=== PATIENT | male | born 1970 | race Hispanic/Latino ===

== ENCOUNTER 2020-08-20 11:21 | Observation (INO) | payer SELFPAY ==
[~2020-08-20] VITALS: Ht 170.2 cm; Wt 94.1 kg
--- NOTE | 2020-08-20 11:47 | NUR ---
PATIENT TO ROOM VIA WHEELCHAIR AND PHYSICIAN NOTIFIED OF PATIENT STATUS
[2020-08-20 11:59] LABS: GFR > 60 ML/MIN (>=60 (CALC)); GFR FOR AFR.AMER. > 60 ML/MIN (>=60 (CALC))
[2020-08-20 12:05] LABS: HEMATOCRIT 42.5 % (39.0-50.0); HEMOGLOBIN 14.7 g/dl (14.0-18.0); IMMATURE GRANULOCYTES 0.6 % (0.0-5.0); MEAN CELL VOLUME 93.4 fL CALC (80.0-100.0); MEAN CORPUSCULAR HGB 32.3 pG CALC (26.0-32.0); MEAN CORPUSCULAR HGB CONC 34.6 g/dL CAL (32.0-36.0); NEUT# 6.18 thou/uL (1.82-7.42); RED BLOOD COUNT 4.55 mill/uL (4.70-6.10); RED CELL DISTRI WIDTH 12.2 % (11.5-15.5)
[2020-08-20 12:16] LABS: ALBUMIN 4.2 g/dL (3.2-5.0); ALKALINE PHOSPHATASE 101 u/l (38-126); ANION GAP 10 (6-22 (CALC)); BILIRUBIN, TOTAL 0.5 mg/dL (0.0-1.4); BUN 13 mg/dL (9-20); BUN/CREATININE RATIO 13 (12-20 (CALC)); CARBON DIOXIDE 27 mmol/l (22-30); CHLORIDE 106 mmol/l (95-108); CREATININE 1.1 mg/dL (0.7-1.3); GFR > 60 ML/MIN (>=60 (CALC)); GFR FOR AFR.AMER. > 60 ML/MIN (>=60 (CALC)); POTASSIUM 3.9 mmol/l (3.5-5.1); SGOT/AST 31 u/l (17-59); SODIUM 138 mmol/l (137-146); TOTAL PROTEIN 7.6 g/dL (6.3-8.2)
--- NOTE | 2020-08-20 12:34 | NUR ---
PT ARRIVED BACK AFTER DOING CT SCANS PT NOT IN VISIBLE DISTRESS
--- NOTE | 2020-08-20 14:42 | NUR ---
PT GOING DOWN TO MRI OTHERWISE PT IS WITHOUT DISTRESS
--- NOTE | 2020-08-20 16:13 | NUR ---
PT HAS TAKES MEDICATION AT HOME BUT UNABLE TO RECALL MEDS HE TAKES
--- NOTE | 2020-08-20 16:18 | NUR ---
REPORT CALLED AND GIVEN TO CECIL RDORIGUEZ PT HAS NO ACUTE DISTRESS HE WAS SLEEPING PRIOR TO AWAKENING HIM TO LET HIM KNOW HE WAS GOING TO BE TRANSFERRED. TRANSFER TO [facility] NOW
--- NOTE | 2020-08-20 16:18 | NUR ---
PT COMPLAINED OF CHEST DISCOMFORT EKG DONE NO NEW ORDERS
--- NOTE | 2020-08-20 16:25 | NUR ---
PATIENT ARRIVED VIA WHEELCHAIR FROM ER. REPORT HANDED OFF BY TAJ. PATIENT ORIENTED TO ROOM AND BED AND CALL LIGHT AND TV REMOTE AT THIS TIME. PATIENT DENIES ANY PAIN AND STATES HIS PAIN IS 0 OUT OF A SCALE OF 0-10. IV IN LAC #20 AND HAS NO SIGNS/SYMPTOMS OF IV SITE INFECTION. PATIENT HAS $603.00 DOLLARS IN HIS WALLET THAT HE WILL RETAIN WITH HIM. PATIENT SHOWING NO SIGNS OF WEAKNESS IN ANY EXTREMITIES. ALL SAFETY MEASURES IN PLACE CALL LIGHT NEAR. SIDERAILS UP X 2.
[2020-08-20 16:40] VITALS: BP 140/77
[2020-08-20 19:20] VITALS: BP 153/87
--- NOTE | 2020-08-20 19:30 | NUR ---
PATIENT RESTING IN BED AT THIS TIME-AWAKE ALERT AND ORIENTEDX3-MOSTLY BRUNEIAN SPEAKING. TELE MONITOR IN PLACE. SALINE LOCK TO LAC INTACT AND HEALTHY AT THIS TIME. PATIENT STATES THAT HE HAD SOME NUMBNESS AND TINGLING TO LEFT ARM AFTER EATING DINNER-ALSO C/O OF SOME ABD PAIN. HAND GRASP ARE STRONG AND EQUAL. ZIYAD IS WNL. SAFETY PRECAUTIONS REINFORCED. CALL LIGHT IN REACH. WILL CONT TO MONITOR.
--- NOTE | 2020-08-20 20:30 | NUR ---
PATIENT RESTING IN BED TALKING ON HIS PHONE-MEDICATED FOR ABD PAIN WITH TYTLENOL 650MG PO. WILL CONT TO MONITOR.
--- NOTE | 2020-08-20 23:00 | NUR ---
PATIENT RESTING IN BED WITH EYES CLOSED-RESP ARE EVEN AND UNLABORED. PATIENT APPEARS SLEEPING. TELE MONITOR IN PLACE. CALL LIGHT IN REACH. WILL CONT TO MONITOR.
[2020-08-20 23:25] VITALS: BP 122/65
[2020-08-21 03:45] VITALS: BP 126/72
--- NOTE | 2020-08-21 04:05 | NUR ---
PATIENT RESTING IN BED AND APPEARS SLEEPING WITH EYES CLOSED. RESPS ARE EVEN AND UNLABORED. TELE MONITOR IN PLACE. SALINE LOCK TO LAC INTACT. CALL LIGHT IN REACH. WILL CONT TO MONITOR.
[2020-08-21 06:26] LABS: HEMATOCRIT 45.5 % (39.0-50.0); HEMOGLOBIN 15.7 g/dl (14.0-18.0); IMMATURE GRANULOCYTES 0.6 % (0.0-5.0); MEAN CELL VOLUME 92.9 fL CALC (80.0-100.0); MEAN CORPUSCULAR HGB CONC 34.5 g/dL CAL (32.0-36.0); NEUT# 5.01 thou/uL (1.82-7.42); RED BLOOD COUNT 4.9 mill/uL (4.70-6.10); RED CELL DISTRI WIDTH 12.2 % (11.5-15.5)
[2020-08-21 06:39] LABS: ALKALINE PHOSPHATASE 74 u/l (38-126); BILIRUBIN, TOTAL 0.5 mg/dL (0.0-1.4); BUN 12 mg/dL (9-20); BUN/CREATININE RATIO 17 (12-20 (CALC)); CARBON DIOXIDE 26 mmol/l (22-30); CHLORIDE 107 mmol/l (95-108); CREATININE 0.7 mg/dL (0.7-1.3); GFR > 60 ML/MIN (>=60 (CALC)); GFR FOR AFR.AMER. > 60 ML/MIN (>=60 (CALC)); SGOT/AST 31 u/l (17-59); SODIUM 140 mmol/l (137-146); TOTAL PROTEIN 7.1 g/dL (6.3-8.2)
[2020-08-21 06:40] LABS: CHOLESTEROL HDL RATIO 3.7 (<4.4 (CALC))
[2020-08-21 06:41] LABS: ANION GAP 11 (6-22 (CALC)); POTASSIUM 4.3 mmol/l (3.5-5.1)
[2020-08-21 07:46] VITALS: BP 120/74
--- NOTE | 2020-08-21 07:46 | NUR ---
PATIENT IN BED AWAKE A/O X3. DENIES ANY PAIN AT THIS TIME. STATES PAIN IS A 0 OUT OF SCALE OF 0-10. PATIENT STATES HE IS HAVING INTERMITTENT BILATERAL TINGLING SENSATIONS ON BOTH ARMS AND LEGS. NEURO CHECKS ARE NEGATIVE AND MOVES ALL EXTREMITIES WITHOUT FAIL. CALL LIGHT NEAR SIDERAILS UP X 2. ALL THE ABOVE INTERPERTED BY CARMINA HENSON. PATIENT VERBALIZES UNDERSTANDING.
--- NOTE | 2020-08-21 08:04 | NUR ---
AT BEDSIDE DISCUSSING POC WITH PT.
[2020-08-21] MEDS ORDERED: ASPIRIN 81 LOW81 MG PO (10:23)
[2020-08-21 10:35] VITALS: BP 146/76
--- NOTE | 2020-08-21 11:03 | NUR ---
PATIENT D/C AT THIS TIME. PATIENT VERBALIZES UNDERSTANDING OF D/C INSTRUCTION. CARMINA WRIGHT TRANSLATED. PATIENT REQUESTING WORK RELEASE ONE GIVEN FOR 08-20-20 THRU 08-21-20.
--- NOTE | 2020-08-21 11:54 | NUR ---
PATIENT SITTING AT BEDSIDE DENIES ANY NEEDS AT THIS TIME. ALL SAFETY MEASURES ARE IN PLACE.
--- NOTE | 2020-08-21 14:21 | NUR ---
Discharge instructions given. Patient verbalizes understanding of same. Discharged in stable condition via Wheelchair to Home with family. All belongings sent with pt.
--- NOTE | 2020-08-22 19:08 | NUR ---
COPY OF H&P/LABS/EKG SENT TO [facility]. AUTHORIZATION FOR MED REC RELEASE OBTAINED BY THEM.
== END 2020-08-21 14:12 | disposition home or self-care (01) | DRG 69 ==
LOC: ED 11:21 → ED-I 13:22 → ED 13:22 → ED-I 13:23 → ED 13:29 → MS2 13:30
PROVIDERS: Family Medicine; Nurse Practitioner Family; ADMIT Internal Medicine; ATTEND Internal Medicine
DX: G45.9 Transient cerebral ischemic attack, unspecified (principal); R07.9 Chest pain, unspecified; E11.9 Type 2 diabetes mellitus without complications; I10 Essential (primary) hypertension; E78.5 Hyperlipidemia, unspecified; E66.9 Obesity, unspecified; F17.210 Nicotine dependence, cigarettes, uncomplicated; Z23 Encounter for immunization; Z20.828 Contact with and (suspected) exposure to other viral communicable diseases
CPT/HCPCS: G0378; J1650; Q9967